=== PATIENT | female | born 1975 | race African-American/Black ===

== ENCOUNTER 2023-11-27 21:01 | Emergency (ER) | payer OTHER ==
[2023-11-27 21:09] VITALS: BP 105/78; PULSE 79; RESP 16; TEMP 98.1; BMI 25.6
== END 2023-11-27 23:12 | disposition home or self-care (01) ==
LOC: FER 21:01
DX: M62.838 Other muscle spasm (principal); M54.2 Cervicalgia; R51.9 Headache, unspecified; G89.29 Other chronic pain
CPT/HCPCS: 70450-TC; 99284-25